=== PATIENT | male | born 1985 | race Caucasian/White ===

== ENCOUNTER 2018-01-05 10:09 | Emergency (ER) | payer OTHER ==
[~2018-01-05] VITALS: Ht 167.6 cm; Wt 94.3 kg
[2018-01-05 10:11] VITALS: Ht 167.6 cm; Wt 94.3 kg
[2018-01-05 10:52] LABS: microscopic required? NO
[2018-01-05 11:09] LABS: CALCIUM 8.2 mg/dL (8.5-10.1); CARBON DIOXIDE 22.3 mmol/L (21-32); CHLORIDE SERUM 104 mmol/L (98-107); GFR1 > 60 mL/min; GLUCOSE SERUM 95 mg/dL (74-106); POTASSIUM SERUM 3.7 mmol/L (3.5-5.1); SODIUM SERUM 140 mmol/L (136-145)
[2018-01-05 11:14] LABS: ALBUMIN 3.5 g/dL (3.4-5.0); ALKALINE PHOSPHATASE 85 U/L (46-116); ALT/SGPT 58 U/L (16-63); AMYLASE 31 U/L (25-115); AST/SGOT 50 U/L (15-37); BILIRUBIN TOTAL 0.24 mg/dL (0.20-1.00); LIPASE 106 IU/L (73-393)
[2018-01-05 11:42] LABS: urine erythrocyte NEGATIVE (NEGATIVE)
[2018-01-05 11:44] LABS: BASOPHIL % 0.4 % (0-2); PLATELET COUNT 322 x10^3mcL (130-400); RED CELL DISTRIBUTION WIDTH 14.4 % (11.5-14.5)
[2018-01-05 11:51] LABS: AMPHETAMINE QUAL UR NONE DETECTED (See below)
[2018-01-05 12:10] VITALS: BP 135/89
== END 2018-01-05 12:27 | disposition home or self-care (01) ==
LOC: ED 10:09
PROVIDERS: Emergency Medicine
DX: K21.9 Gastro-esophageal reflux disease without esophagitis (principal); K76.0 Fatty (change of) liver, not elsewhere classified; Z88.0 Allergy status to penicillin
CPT/HCPCS: 83880; J1885; J2405; J7030; Q0092

== ENCOUNTER 2019-01-20 14:04 | Emergency (ER) | payer OTHER ==
[~2019-01-20] VITALS: Ht 167.6 cm; Wt 98.4 kg
[2019-01-20 14:11] VITALS: Ht 167.6 cm; Wt 98.4 kg
[2019-01-20 16:31] VITALS: BP 136/91
== END 2019-01-20 16:31 | disposition home or self-care (01) ==
LOC: ED 14:04
DX: R10.13 Epigastric pain (principal); Z88.0 Allergy status to penicillin
CPT/HCPCS: J1885

== ENCOUNTER 2019-09-07 19:37 | Inpatient (IN) | payer OTHER ==
[~2019-09-07] VITALS: Ht 165.1 cm; Wt 95.7 kg
[2019-09-07 19:49] VITALS: Ht 165.1 cm; Wt 95.7 kg
[2019-09-07 20:27] LABS: BASOPHIL % 0.3 % (0-2); PLATELET COUNT 334 x10^3mcL (130-400); RED CELL DISTRIBUTION WIDTH 14.1 % (11.5-14.5)
[2019-09-07 20:51] LABS: CALCIUM 8.5 mg/dL (8.5-10.1); CARBON DIOXIDE 25.7 mmol/L (21-32); CHLORIDE SERUM 100 mmol/L (98-107); CREATININE SERUM 1.1 mg/dL (0.7-1.3); GFR1 > 60 mL/min; GLUCOSE SERUM 116 mg/dL (74-106); POTASSIUM SERUM 3.8 mmol/L (3.5-5.1); SODIUM SERUM 138 mmol/L (136-145)
[2019-09-07 20:56] LABS: ALBUMIN 3.7 g/dL (3.4-5.0); ALKALINE PHOSPHATASE 76 U/L (46-116); ALT/SGPT 34 U/L (16-63); AST/SGOT 18 U/L (15-37); BILIRUBIN TOTAL 0.3 mg/dL (0.20-1.00); TOTAL PROTEIN, SERUM 7.2 g/dL (6.4-8.2)
[2019-09-07] MEDS ORDERED: OLANZAPINE5 M3 PO (21:39)
[2019-09-07] MEDS ORDERED: TRAZODONE50 M1 PO (21:39)
[2019-09-07] MEDS ORDERED: GEMFIBROZIL600 MG PO (21:40)
[2019-09-07 22:27] LABS: T3 TOTAL 1.25 ng/mL
[2019-09-07 22:29] LABS: FREE T4 1.21 ng/dL (0.76-1.46); FREE THYROXINE INDEX 3.2 ug/dL (1.4-4.5); T4(THYROXINE) 8.1 ug/dL (4.7-13.3)
[2019-09-07 22:55] LABS: CHOLESTEROL/HDL RATIO 7.3
[2019-09-08] VITALS: BP 145/80
[2019-09-08 01:14] LABS: microscopic required? NO
[2019-09-08 01:17] LABS: UA SPECIFIC GRAVITY >=1.030 (1.005-1.035); urine erythrocyte NEGATIVE (NEGATIVE)
[2019-09-08 05:05] VITALS: BP 113/55
[2019-09-08 06:24] LABS: BASOPHIL % 0.3 % (0-2); PLATELET COUNT 296 x10^3mcL (130-400); RED CELL DISTRIBUTION WIDTH 14.2 % (11.5-14.5)
[2019-09-08 06:48] LABS: CALCIUM 8.1 mg/dL (8.5-10.1); CARBON DIOXIDE 26.2 mmol/L (21-32); CHLORIDE SERUM 105 mmol/L (98-107); CREATININE SERUM 0.9 mg/dL (0.7-1.3); GFR1 > 60 mL/min; GLUCOSE SERUM 85 mg/dL (74-106); POTASSIUM SERUM 3.7 mmol/L (3.5-5.1); SODIUM SERUM 140 mmol/L (136-145)
[2019-09-08 09:55] VITALS: BP 128/65
[2019-09-08 12:14] VITALS: BP 113/78
[2019-09-08 17:57] VITALS: BP 139/76
[2019-09-08 19:20] VITALS: BP 137/74
[2019-09-09 05:35] VITALS: BP 126/75
[2019-09-09 05:37] VITALS: BP 126/75
[2019-09-09 06:16] LABS: BASOPHIL % 0.5 % (0-2); PLATELET COUNT 310 x10^3mcL (130-400); RED CELL DISTRIBUTION WIDTH 14.2 % (11.5-14.5)
[2019-09-09 07:12] LABS: CALCIUM 8.4 mg/dL (8.5-10.1); CARBON DIOXIDE 28.1 mmol/L (21-32); CHLORIDE SERUM 105 mmol/L (98-107); CREATININE SERUM 0.9 mg/dL (0.7-1.3); GFR1 > 60 mL/min; GLUCOSE SERUM 90 mg/dL (74-106); MAGNESIUM 2.1 mg/dL (1.8-2.4); PHOSPHOROUS 3.3 mg/dL (2.5-4.9); POTASSIUM SERUM 3.7 mmol/L (3.5-5.1); SODIUM SERUM 141 mmol/L (136-145)
[2019-09-09] MEDS ORDERED: LEVAQUIN750 MG PO (11:59)
[2019-09-09] MEDS ORDERED: FLAGYL500 MG PO (12:00)
[2019-09-09] MEDS ORDERED: ATORVASTATIN CA20 M1 GT (12:01)
[2019-09-09 12:21] VITALS: BP 126/75
[2019-09-09 13:18] VITALS: BP 131/79
== END 2019-09-09 13:35 | disposition home or self-care (01) | DRG 720 ==
LOC: ED 19:37 → DU 21:39 → MU 21:39 → DU 22:35 → MU 09-08 17:35
PROVIDERS: Emergency Medicine; ADMIT Family Medicine
DX: A41.9 Sepsis, unspecified organism (principal); F20.9 Schizophrenia, unspecified; K57.32 Diverticulitis of large intestine without perforation or abscess without bleeding; G47.00 Insomnia, unspecified; F17.210 Nicotine dependence, cigarettes, uncomplicated; E78.00 Pure hypercholesterolemia, unspecified; Z88.0 Allergy status to penicillin; Z86.010 Personal history of colon polyps; Z23 Encounter for immunization; Z79.899 Other long term (current) drug therapy
CPT/HCPCS: 84439; 90732; G0378; J1956; J2270; J2405; J3490; J7030